=== PATIENT | female | born 1970 | race Caucasian/White ===

== ENCOUNTER 2017-01-02 07:49 | Day surgery (SDC) | payer BC, OTHER ==
[2016-12-31 16:08] VITALS: BMI 54.5
[2017-01-02 08:36] VITALS: RESP 16; TEMP 97.2
[2017-01-02] MEDS ORDERED: LIDOCAINE 1% 20 ML VIAL (10MG/ML) FOR IV START INTRADERMA ONE (08:36)
[2017-01-02] MEDS ORDERED: LACTATED RINGERS 1,000 ML IV ONE (08:37)
[2017-01-02] MEDS ORDERED: PROPOFOL 10 MG/ML 20 ML VIAL IV ONE (08:55)
--- NOTE | 2017-01-02 09:17 | P.PCN ---
Date of Procedure: 01/02/17 Preoperative Diagnosis: Postoperative Diagnosis: Procedure(s) Performed: BRIEF HISTORY: Patient is a 46-year-old pleasant white female, scheduled for an elective colonoscopy as a part of screening for colorectal neoplasia. She has a family history of colon cancer diagnosed in her father at age 55. PROCEDURE PERFORMED: Colonoscopy with snare polypectomy. PREOPERATIVE DIAGNOSIS: Screening for colon cancer and family history of colon cancer. IV sedation per Anesthesia. PROCEDURE: After informed consent was obtained, the patient, was brought into the endoscopy unit. IV sedation was administered by Anesthesia under continuous monitoring. Digital rectal examination was normal. Initially the Olympus CF- 160 flexible video colonoscope was then inserted in the rectum, gradually advanced into the cecum without any difficulty. Careful examination was performed as the scope was gradually being withdrawn. Ileocecal valve and the appendiceal orifice were visualized and appeared normal. Prep was excellent. Mucosa of the cecum appeared normal. In the ascending colon there was a 2 cm broad-based polyp removed by piecemeal snare polypectomy and complete polypectomy accomplished. The rest of the ascending colon, transverse colon, descending colon, appeared normal. In the descending colon there was a 1 cm polyp removed by snare polypectomy. The sigmoid colon, and rectum appeared normal. Retroflexion was performed in the rectum and no lesions were seen. The patient tolerated the procedure well. IMPRESSION: 2 cm broad-based ascending colon polyp status post polypectomy 1 cm descending colon polyp serous was snare polypectomy RECOMMENDATIONS: Findings of this examination were discussed with the patient as well as her family. She was advised to follow with the biopsy results. She can have a repeat colonoscopy in 3 years. Implants: Indications for Procedure: Operative Findings: Description of Procedure:
[2017-01-02 09:42] VITALS: BP 119/81; PULSE 68
== END 2017-01-02 10:11 | disposition home or self-care (01) ==
LOC: ORWHC2ENDO 07:49
PROVIDERS: ATTEND Internal Medicine Gastroenterology
DX: Z12.11 Encounter for screening for malignant neoplasm of colon (principal); D12.2 Benign neoplasm of ascending colon; D12.4 Benign neoplasm of descending colon; Z80.0 Family history of malignant neoplasm of digestive organs; Z79.1 Long term (current) use of non-steroidal anti-inflammatories (NSAID); Z79.899 Other long term (current) drug therapy; E66.01 Morbid (severe) obesity due to excess calories
CPT/HCPCS: 81025; 88305; 45385; J2704

== ENCOUNTER → 2018-03-11 | Outpatient (CLI) | payer BC ==
--- NOTE | 2018-03-11 14:30 | MM ---
Reason for exam: screening (asymptomatic). Baseline mammogram. History: Family history of breast cancer in paternal grandmother. Physical Findings: Nurse did not find any significant physical abnormalities on exam. MG Screening Mammo w CAD Bilateral CC and MLO view(s) were taken. XCCL view(s) were taken of the left breast. There are scattered fibroglandular densities. No significant findings. These results were verbally communicated with the patient and result sheet given to the patient on 03/11/18. ASSESSMENT: Benign, BI-RAD 2 RECOMMENDATION: Routine screening mammogram of both breasts in 1 year.
== END | disposition home or self-care (01) ==
LOC: RADMAMWWP 13:39
PROVIDERS: ATTEND Family Medicine
DX: Z12.31 Encounter for screening mammogram for malignant neoplasm of breast (principal)
CPT/HCPCS: 77067

== ENCOUNTER → 2019-11-24 | Outpatient (CLI) | payer BC | END | disposition home or self-care (01) | LOC: LABWHC1 07:14 | PROVIDERS: ATTEND Family Medicine | DX: R06.02 Shortness of breath (principal) | CPT/HCPCS: 87635 ==

== ENCOUNTER → 2020-01-11 | Outpatient (CLI) | payer BC | END | disposition home or self-care (01) | LOC: LABWHC1 07:27 | PROVIDERS: ATTEND Surgery Trauma Surgery | DX: Z11.59 Encounter for screening for other viral diseases (principal) | CPT/HCPCS: U0003; C9803 ==

== ENCOUNTER → 2020-08-16 | Outpatient (CLI) | payer BC ==
--- NOTE | 2020-08-16 19:48 | CONS ---
CONSULTATION DATE OF SERVICE: 08/16/2020 This 50-year-old lady has been evaluated in the sleep center for possible obstructive sleep apnea-hypopnea syndrome. HISTORY OF PRESENT ILLNESS/SLEEP-WAKE EVALUATION: Patient's usual sleep schedule on weekdays is from 8 p.m. to 3:30 a.m., on weekends from 9:30 p.m. to 9 a.m. No problems with falling asleep, although she has a TV set in the bedroom. She usually sleeps on the side position. She has loud snoring and she wakes up from sleep 3 times with nocturia. In the morning, the patient wakes up tired, has difficulties paying attention and has problems with memory, concentration, irritability, depression, anxiety, claustrophobia. [place] Sleepiness Scale is in extremely high range at 23. The patient is ready to take naps, but she does not have time to do that. She drinks 24 ounces of coffee during the day. No history of hypnagogic hallucinations, sleep paralysis or cataplexy. PAST MEDICAL HISTORY: Positive for asthma, episodes of pneumonia, depression, acid reflux, vertigo. PAST SURGICAL HISTORY: Polypectomy from larynx, . MEDICATIONS: 1. Citalopram 40 mg once a day. 2. Meclizine 25 mg as needed. 3. Phentermine 37.5 mg once a day. 4. Omeprazole 20 mg twice a day. 5. Montelukast 10 mg once a day. 6. Albuterol inhaler. SOCIAL HISTORY: Negative for smoking or using alcohol. FAMILY HISTORY: Positive for stroke, arthritis, liver problems, thyroid problems. REVIEW OF SYSTEMS: Multiple awakenings from sleep. Extremely significant excessive daytime sleepiness. PHYSICAL EXAMINATION: GENERAL: A pleasant lady without distress. VITAL SIGNS: BP 147/75, HR 82, RR 16, height 5 feet 7 inches, weight 384.4, body mass index 60.2, temperature 98.1. HEENT: PERRLA, EOMI. Evaluation of oropharynx showed tongue protrudes midline. Extremely low position of soft palate. Changes of voice after surgery. NECK: Supple. No JVD. Thyroid is not palpable. Wide neck; 19 inches in circumference. LUNGS: Clear to percussion and to auscultation. Good air exchange. No wheezing or rhonchi. HEART: S1, S2 regular. No murmurs, gallops or rubs. ABDOMEN: Obese. EXTREMITIES: No clubbing or cyanosis. SUPERVISOR MALTED MILK: Awake, alert, and oriented X3. Cranial nerves 2 to 7 intact. There is no fasciculation or atrophy. noted. No focal deficits observed. IMPRESSION: 1. Loud snoring, multiple awakenings from sleep with nocturia, low position of soft palate, wide neck at 19 inches, significant excessive daytime sleepiness; obstructive sleep apnea-hypopnea syndrome. 2. History of asthma. 3. History of episodes of pneumonia. 4. History of depression. 5. Acid reflux. 6. History of episodes of vertigo. 7. Status post polypectomy from larynx recently. 8. Status post . 9. Some increasing blood pressure in the office. PLAN: 1. We will start with a home sleep apnea test for evaluation of patient's breathing during sleep. 2. Following plan after reviewing results of sleep study. 3. Aggressive losing weight program. 4. Sleep hygiene with regular time in bed for at least 7-1/2 to 8 hours. 5. Preferable position during sleep is on the side. 6. Monitoring blood pressure. 7. Low-sodium diet. Thank you very much for referring this patient for consultation. Sincerely, Ronny Ayon MD, PhD, FAASM Diplomat of [employer] Aviation Electronic Warfare Operator of [facility] [place] GUI / JACOB: [id number] /
== END | disposition home or self-care (01) ==
LOC: SLEEP 15:35
PROVIDERS: ATTEND Internal Medicine
DX: G47.33 Obstructive sleep apnea (adult) (pediatric) (principal); K21.9 Gastro-esophageal reflux disease without esophagitis; R35.1 Nocturia; Z86.59 Personal history of other mental and behavioral disorders; Z87.09 Personal history of other diseases of the respiratory system; Z86.69 Personal history of other diseases of the nervous system and sense organs; Z98.890 Other specified postprocedural states; Z79.899 Other long term (current) drug therapy; Z79.51 Long term (current) use of inhaled steroids
CPT/HCPCS: 99211

== ENCOUNTER → 2020-11-09 | Outpatient (CLI) | payer BC ==
--- NOTE | 2020-11-09 16:33 | CT ---
EXAMINATION TYPE: CT brain wo/w con DATE OF EXAM: 11/09/2020 COMPARISON: None HISTORY: Vertigo. CT DLP: 2237.5 mGycm Automated exposure control for dose reduction was used. CONTRAST: Performed without and with IV Contrast, patient injected with 100ml mL of Isovue 300. Ventricles have normal size. There is no mass effect nor mid line shift. There is no sign of intracra nial hemorrhage. The calvarium is intact. Skull base is intact. There is normal aeration of the masto id sinuses. There is no pathologic enhancement. Sella turcica appears normal. There is normal enhancement of the venous sinuses. There is no evidence of posterior fossa abnormality. IMPRESSION: Negative CT scan of the brain.
== END | disposition home or self-care (01) ==
LOC: RADCTMAIN 14:43
PROVIDERS: ATTEND Family Medicine
DX: R42 Dizziness and giddiness (principal)
CPT/HCPCS: 70470; Q9967

== ENCOUNTER → 2021-01-08 | Outpatient (CLI) | payer BC ==
--- NOTE | 2021-01-10 11:39 | MM ---
Reason for exam: screening (asymptomatic). Last mammogram was performed 2 years and 10 months ago. History: Family history of breast cancer in paternal grandmother. Physical Findings: A clinical breast exam by your physician is recommended on an annual basis and results should be correlated with mammographic findings. MG Screening Mammo w CAD Bilateral CC and MLO view(s) were taken. Prior study comparison: March 11, 2018, bilateral MG screening mammo w CAD. There are scattered fibroglandular densities. There is no discrete abnormality. No significant changes when compared with prior studies. ASSESSMENT: Negative, BI-RAD 1 RECOMMENDATION: Routine screening mammogram of both breasts in 1 year.
--- NOTE | 2021-01-10 22:03 | BD ---
EXAMINATION TYPE: Axial Bone Density DATE OF EXAM: 01/08/2021 COMPARISON: NONE CLINICAL HISTORY: 50 YR OLD FEMALE.....ICD-10 CODE: POST MENOPAUSAL Height: 66.5 Weight: 388 FRAX RISK QUESTIONS: Family History (Parent hip fracture): YES Glucocorticoids (More than 3mos): YES (Ex: prednisone, prednisolone, methylprednisolone, dexamethasone, and hydrocortisone). RISK FACTORS HISTORY OF: Family History of Osteoporosis: YES, GRANDMOTHER, MOTHER, WITH HIP FX Postmenopausal woman: LMP NOV, 2020, DENIES CHANCE Hyperparathyroidism: NO Adrenal Insufficiency: NO MEDICATIONS: Prednisone or other steroids: INHALERS AND STEROIDS, FOR ASTHMA FOR MANY YRS Additional Medications: CELEXA, REFLUX MEDS, MULTIVITAMIN Additional History: ALL OVER BONE AND JOINT PAIN, REFLUX, ASTHMA, EXAM MEASUREMENTS: Bone mineral densitometry was performed using the [employer] System. Bone mineral density as measured about the Lumbar spine is: ----- L1-L4(G/cm2): 1.247 T Score Values are as follows: ----- L1: 1.7 ----- L2: 1.1 ----- L3: 0.3 ----- L4: -0.7 ----- L1-L4: 0.6 Bone mineral density FIRST BONE DENSITY STUDY......PT 50 YRS OLD, BASELINE Bone mineral density about the R hip (g/cm2): 1.094 Bone mineral density about the L hip (g/cm2): 1.108 T Score values are as follows: -----R Neck: 0.0 -----L Neck: -0.3 -----R Total: 0.7 -----L Total: 0.8 Bone mineral density FIRST DEXA SCAN.....BASELINE, PT IS 50 YRS OLD FRAX%s; THERE IS A 7.9% CHANCE FOR A MAJOR OSTEOPOROTIC FX AND A 0.1% FOR HIP......PROBABILITY FOR FX IN 10 YRS TIME IMPRESSION: Normal (Values between +1 and -1 indicate normal bone mass). Consider repeating this study in 5 year s or sooner if there is some new clinical indication. NOTE: T-SCORE=SD OF THE YOUNG ADULT MEAN.
== END | disposition home or self-care (01) ==
LOC: RADMAMWWP 08:30
PROVIDERS: ATTEND Family Medicine
DX: Z12.31 Encounter for screening mammogram for malignant neoplasm of breast (principal); Z78.0 Asymptomatic menopausal state
CPT/HCPCS: 77067; 77080

== ENCOUNTER → 2021-01-23 | Outpatient (CLI) | payer BC ==
--- NOTE | 2021-01-23 22:29 | SFUN ---
SLEEP CENTER FOLLOW UP NOTE DATE OF SERVICE: 01/23/2021 CLINICAL: 50-year-old lady has been followed in Sleep Center for treatment of obstructive sleep apnea-hypopnea syndrome. Recently the patient had a home sleep apnea test which showed extremely severe obstructive sleep apnea-hypopnea syndrome. I discussed results of sleep studies with patient in detail. She underwent CPAP titration when her respiration was normalized. Today is her first visit after she was started on treatment with CPAP and she likes her equipment now, although may have a little bit discomfort from fullface mask. She feels better while using her CPAP. [place] Sleepiness Scale today increased to 13. During consultation it was 23. Subsequently, there is significant improvement but still indicates some sleepiness. I checked the CPAP unit. Range of the pressure 5-15 with average pressure 10.2, usage 24/30 nights and 23/ nights for more than 4 hours with average usage 5.6 hours per night. Leak is 18 L/minute, which is borderline. Apnea-hypopnea index is only 1.8, which is totally normal. MEDICATIONS: Citalopram 40 mg once a day, meclizine 25 mg as needed, ( ) 37.5 mg once a day, omeprazole 20 mg twice a day, Montelukast 10 mg once a day, albuterol inhaler. PHYSICAL EXAM: Patient in no distress. Blood pressure 146/71, HR 76, RR 16, weight 291, temp 97.5, oxygen saturation on room air 95%. Oropharynx has low position of soft palate. Mallampati IV. Changes of voice. HEENT: PERRLA, EOMI, evaluation of oropharynx showed tongue protrudes midline. NECK: Supple, no JVD. Thyroid is not palpable. LUNGS: Clear to percussion and to auscultation. Good air exchange. No wheezing or rhonchi. HEART: S1, S2 regular. No murmurs, gallops, or rubs. ABDOMEN: Obese. Soft and nontender. Bowel sounds are present. No organomegaly appreciated. EXTREMITIES: No clubbing or cyanosis. TABLE OPERATOR: Awake, alert, and oriented X3. Cranial nerves 2 to 7 intact. There is no fasciculation or atrophy. noted. No focal deficits observed. IMPRESSION: 1. Extremely severe obstructive sleep apnea-hypopnea syndrome; apnea-hypopnea index 66.6 with oxygen desaturation to 62%. The patient demonstrated good compliance with treatment. Normal respiration on CPAP. 2. Obesity. 3. History of asthma. 4. History of depression. 5. History of episodes of pneumonia. 6. Acid reflux. 7. History of episodes of vertigo. 8. Status post polypectomy from larynx, changes of voice. 9. Status post . 10.Increasing blood pressure in the office. PLAN: 1. I discussed with the patient position of CPAP unit during the sleep, which should stay lower than her head. Position of the tube should be directly from her face to the CPAP unit. 2. The patient should make humidifier dry after awakenings in the morning. 3. Patient will continue to use PAP equipment every night for the whole night. 4. Sleep hygiene with regular time in bed for at least 7-1/2 to 8 hours. 5. Precautions related to driving. No driving if feeling sleepiness. 6. I will maintain all necessary prescription for PAP supplies including mask, tube, filters. 7. Watching weight. 8. Follow-up visit in 6 months or earlier if patient has any problems. I spent with this patient and documentation more than 30 minutes. Thank you very much for allowing me to participate in management of your patient. Sincerely, Ronny Ayon MD, PhD, FAASM Diplomat of [employer] Sleep Medicine Board of [place] [employer] Agricultural Appraiser of [facility] [place] GUI / JACOB: [id number] / MTDD
== END ==
LOC: SLEEP 15:53
PROVIDERS: ATTEND Internal Medicine
DX: G47.33 Obstructive sleep apnea (adult) (pediatric) (principal); G47.36 Sleep related hypoventilation in conditions classified elsewhere; E66.9 Obesity, unspecified; J45.909 Unspecified asthma, uncomplicated; F32.9 Major depressive disorder, single episode, unspecified; R49.9 Unspecified voice and resonance disorder; K21.9 Gastro-esophageal reflux disease without esophagitis; R03.0 Elevated blood-pressure reading, without diagnosis of hypertension; Z98.890 Other specified postprocedural states; Z99.89 Dependence on other enabling machines and devices; Z87.01 Personal history of pneumonia (recurrent); Z86.69 Personal history of other diseases of the nervous system and sense organs; Z87.891 Personal history of nicotine dependence

== ENCOUNTER 2021-04-15 09:25 | Day surgery (SDC) | payer BC ==
[2021-04-11 10:52] VITALS: BMI 59.5
[~2021-04-15 09:25] MED LIST: DEXAMETHASONE SOD PHOSPHATE 4 MG/ML 1 ML VIAL IV ONE; HYDROmorphone 0.5 MG/0.5 ML SYRINGE IVP PRN; LACTATED RINGERS 1,000 ML IV SCH; ONDANSETRON 4 MG/2 ML VIAL IVP ONE; Pre Op ABX Message 1 EACH MISC MISCELLANE ONE
[2021-04-15 09:55] VITALS: RESP 16
[2021-04-15] MEDS ORDERED: SCOPOLAMINE 1.5MG/72HR PATCH TRANSDERM ONE (10:03)
[2021-04-15] MEDS ORDERED: LIDOCAINE 1% (10MG/ML) FOR IV START INTRADERMA ONE (10:04)
[2021-04-15] MEDS ORDERED: LIDOCAINE 1% INJ 10MG/ML (20 ML MDV) ONE (11:06)
[2021-04-15] MEDS ORDERED: SUCCINYLCHOLINE CHLORIDE VIAL 200 MG/10 ML VIAL IV ONE (11:06)
[2021-04-15] MEDS ORDERED: PROPOFOL 10 MG/ML 20 ML VIAL IV ONE (11:06)
[2021-04-15] MEDS ORDERED: fentaNYL (PF) 50 MCG/ML 2 ML AMP ONE (11:06)
[2021-04-15] MEDS ORDERED: MIDAZOLAM 2 MG/2 ML VIAL ONE (11:06)
[2021-04-15] MEDS ORDERED: BUPIVACAINE (PF) 0.25% 30 ML VIAL SQ ONE ×2 (11:07→11:49)
[2021-04-15] MEDS ORDERED: SODIUM CHLORIDE 0.9% 100 ML with ceFAZolin 3,000 MG IV ONE ×2 (11:11)
--- NOTE | 2021-04-15 12:04 | P.OP ---
Date of Procedure: 04/15/21 Preoperative Diagnosis: Torn medial lateral meniscus right knee Postoperative Diagnosis: 1. Torn medial meniscus right knee 2. Torn lateral meniscus right knee 3. 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 Synovitis Procedure(s) Performed: 1. Arthroscopy with partial medial meniscectomy (20% of meniscus excised) 2. Partial lateral meniscectomy (10% meniscus excised) 3. Chondroplasty of the medial femoral condyle and the patellofemoral compartments. 4. Partial synovectomy of the medial femoral, lateral femoral, and patellofemoral compartments Anesthesia: MAHIN Surgeon: Emil Mondragon Estimated Blood Loss (ml): 10 Pathology: none sent Condition: stable Disposition: PACU Indications for Procedure: This is a 42-year-old female that presented to my office with pain in her right knee. MRI does show torn medial and lateral meniscus and after discussing the surgical and nonsurgical treatment options with her at length, she wished to proceed with arthroscopic debridement of right knee. Informed consent was obtained. Operative Findings: The operative findings are consistent with a torn medial and lateral meniscus, grade 3 chondral malacia the mediofemoral condyle and patellofemoral compartments, and synovitis Description of Procedure: Patient was seen and evaluated in the preoperative area, the operative site was marked with a skin marker. The patient was then brought to the operating room and given 3 g of Ancef intravenously. A general anesthetic was administered by the anesthesia department. Tourniquet was placed on the right upper thigh and the left lower extremity was then prepped and draped in usual sterile fashion. A universal timeout was then performed confirming the patient's name, surgical site, ALLERGIES, and consent. The limb was then exsanguinated and tourniquet insufflated to 350 mmHg. Standard inferior medial and inferior lateral portals were established in the knee. The trochar was inserted in the inferolateral portal. Examination began at the patellofemoral joint. There is noted to be grade 3 chondral malacia the patellofemoral compartment and a moderate amount of synovitis. Next the medial compartment was visualized. There was a tear of the posterior horn of the medial meniscus. There was grade 3 chondral malacia the mediofemoral compartment and synovitis. The notch area was then visualized and the ACL was intact. The Lateral compartment was then visualized and there was a tear of the lateral horn of the lateral meniscus. There was no evidence of chondromalacia, but a mild amount of synovitis. Next, using an arthroscopic shaver and a biter, partial medial meniscectomy was performed stable margins. Approximately 20% of the meniscus was excised. a partial lateral meniscectomy was also performed with approximately 10% of the lateral meniscus excised. A partial synovectomy is performed the medial femoral, lateral femoral, patellofemoral compartments. Chondroplasty was also performed of the medial femoral and patellofemoral compartments of the knee. Knee was then copiously irrigated, instruments removed, incisions were closed with 4-0 nylon. 30 mL of quarter percent plain Marcaine was injected sterilely into the surgical area. A sterile dressing was then applied, and the tourniquet was released. Patient was then transferred to recovery room in stable condition.condition.
[2021-04-15 12:16] VITALS: TEMP 96.9
[2021-04-15] MEDS ORDERED: LACTATED RINGERS 1,000 ML IV ONE (13:19)
[2021-04-15] MEDS ORDERED: KETOROLAC 15 MG/ML 1 ML VIAL ONE (13:24)
[2021-04-15] MEDS ORDERED: KETOROLAC 15 MG/ML 1 ML VIAL IVP ONE (13:28)
[2021-04-15 14:28] VITALS: BP 117/73; PULSE 64
== END 2021-04-15 15:02 | disposition home health service (06) ==
LOC: OR 09:25
PROVIDERS: ATTEND Orthopaedic Surgery
DX: S83.241A Other tear of medial meniscus, current injury, right knee, initial encounter (principal); S83.281A Other tear of lateral meniscus, current injury, right knee, initial encounter; M65.9 Synovitis and tenosynovitis, unspecified; G47.30 Sleep apnea, unspecified; F32.9 Major depressive disorder, single episode, unspecified; E66.01 Morbid (severe) obesity due to excess calories; Z79.899 Other long term (current) drug therapy
CPT/HCPCS: 29880; 81025; J2250; J0330; J1100; J2405; J0690; J2001; J3010; J1885; J2704; J1170

== ENCOUNTER 2021-09-09 10:35 | Emergency (ER) | payer BC ==
[2021-09-09 10:46] VITALS: TEMP 98.7
--- NOTE | 2021-09-09 12:01 | XR ---
EXAMINATION TYPE: XR KUB DATE OF EXAM: 09/09/2021 COMPARISON: NONE HISTORY: Pain TECHNIQUE: One view abdominal series FINDINGS: The osseous structures are intact. The bowel gas pattern is nonspecific. Lung bases are clear. Hear t size prominent. Arthropathy of the hips. No suspicious calcifications. IMPRESSION: 1. Nonspecific abdomen.
--- NOTE | 2021-09-09 12:36 | ED ---
Abdominal Pain HPI - General Chief Complaint: Abdominal Pain Stated Complaint: Abd pain Time Seen by Provider: 09/09/21 11:07 Source: patient, RN notes reviewed Mode of arrival: ambulatory Limitations: no limitations - History of Present Illness Initial Comments: 51-year-old female sent emergency Department with chief complaint of right flank pain. Patient states it started last from for hours. Patient states that nothing is making her pain feel better or worse. She does have a history of kidney stones. Patient states it is worse with movement at times. Denies any bowel, bladder incontinence or retention no saddle anesthesias denies any dysuri a hematuria patient did take some pain meds which helped her. Patient chest pain shortness breath - Related Data Home Medications Medication Instructions Recorded Confirmed Albuterol Sulfate [Proair Hfa] 1 - 2 puff INHALATION RT-QID PRN 12/31/16 09/09/21 Citalopram Hydrobromide 40 mg PO HS 12/31/16 09/09/21 [Citalopram HBr] Omeprazole Magnesium [PriLOSEC] 20 mg PO BID 09/09/21 09/09/21 Previous Rx's Medication Instructions Recorded Ketorolac [Toradol] 10 mg PO Q8HR #15 tab 09/09/21 Ondansetron Odt [Zofran Odt] 4 mg PO Q8HR PRN #10 tab 09/09/21 Sulfamethox-Tmp 800-160Mg [Bactrim 1 each PO Q12HR #14 tab 09/09/21 Ds] Tamsulosin [Flomax] 0.4 mg PO DAILY #7 cap 09/09/21 Allergies Allergy/AdvReac Type Severity Reaction Status Date / Time No Known Allergies Allergy Verified 09/09/21 12:05 Review of Systems ROS Statement: Those systems with pertinent positive or pertinent negative responses have been documented in the HPI. ROS Other: All systems not noted in ROS Statement are negative. Past Medical History Past Medical History: Asthma Additional Past Medical History / Comment(s): HAS DRY COUGH-STATES IT FEELS LIKE SOMETHING IS IN HER THROAT AND HAS BEEN BOTHERING HER SINCE JESSE. History of Any Multi-Drug Resistant Organisms: None Reported Past Surgical History: Section, Tubal Ligation Past Anesthesia/Blood Transfusion Reactions: No Reported Reaction, Motion Sickness Past Psychological History: No Psychological Hx Reported Smoking Status: Never smoker Past Alcohol Use History: Rare Past Drug Use History: None Reported - Past Family History Father Family Medical History: Cancer Additional Family Medical History / Comment(s): COLON CA General Exam Limitations: no limitations General appearance: alert, in no apparent distress Head exam: Present: atraumatic, normocephalic, normal inspection Eye exam: Present: normal appearance, PERRL, EOMI. Absent: scleral icterus, conjunctival injection, periorbital swelling ENT exam: Present: normal exam, normal oropharynx, mucous membranes moist Neck exam: Present: normal inspection, full ROM. Absent: tenderness, meningismus, lymphadenopathy Respiratory exam: Present: normal lung sounds bilaterally. Absent: respiratory distress, wheezes, rales, rhonchi, stridor Cardiovascular Exam: Present: regular rate, normal rhythm, normal heart sounds. Absent: systolic murmur, diastolic murmur, rubs, gallop, clicks Back exam: Present: CVA tenderness (R). Absent: CVA tenderness (L) Skin exam: Present: warm, dry, intact, normal color. Absent: rash Course Vital Signs 09/09/21 09/09/21 10:44 12:42 Temperature 98.7 F Pulse Rate 86 75 Respiratory 20 18 Rate Blood Pressure 145/78 142/77 O2 Sat by Pulse 98 97 Oximetry Medical Decision Making - Medical Decision Making 51-year-old presented for right flank pain patient does any hematuria noted on urinalysis patient does have a history kidney stones pains is consistent with kidney stone. Patient will be started on Toradol, Flomax, Zofran. Patient did have a small amount bacterial placed on antibiotics prophylactically patient will follow-up with urology return for any worsening change in symptoms. - Lab Data Result diagrams: 09/09/21 12:22 09/09/21 12:22 Lab Results 09/09/21 09/09/21 09/09/21 Range/Units 11:15 12:22 12:22 WBC 7.7 (3.8-10.6) k/uL RBC 3.96 (3.80-5.40) m/uL Hgb 12.6 (11.4-16.0) gm/dL Hct 37.8 (34.0-46.0) % MCV 95.7 (80.0-100.0) fL MCH 31.8 (25.0-35.0) pg MCHC 33.2 (31.0-37.0) g/dL RDW 14.4 (11.5-15.5) % Plt Count 351 (150-450) k/uL MPV 7.1 Neutrophils % 67 % Lymphocytes % 21 % Monocytes % 5 % Eosinophils % 4 % Basophils % 1 % Neutrophils # 5.2 (1.3-7.7) k/uL Lymphocytes # 1.7 (1.0-4.8) k/uL Monocytes # 0.4 (0-1.0) k/uL Eosinophils # 0.3 (0-0.7) k/uL Basophils # 0.1 (0-0.2) k/uL Sodium 137 (137-145) mmol/L Potassium 3.9 (3.5-5.1) mmol/L Chloride 101 (98-107) mmol/L Carbon Dioxide 31 H (22-30) mmol/L Anion Gap 5 mmol/L BUN 11 (7-17) mg/dL Creatinine 0.65 (0.52-1.04) mg/dL Est GFR (CKD-EPI)AfAm >90 (>60 ml/min/1.73 sqM) Est GFR (CKD-EPI)NonAf >90 (>60 ml/min/1.73 sqM) Glucose 99 (74-99) mg/dL Calcium 8.8 (8.4-10.2) mg/dL Total Bilirubin 0.4 (0.2-1.3) mg/dL AST 28 (14-36) U/L ALT 28 (4-34) U/L Alkaline Phosphatase 74 (38-126) U/L Total Protein 7.0 (6.3-8.2) g/dL Albumin 3.8 (3.5-5.0) g/dL Amylase 53 (30-110) U/L Lipase 49 (23-300) U/L Urine Color Dark Brown Urine Appearance Cloudy H (Clear) Urine pH 5.5 (5.0-8.0) Ur Specific Baker 1.027 (1.001-1.035) Urine Protein 1+ H (Negative) Urine Glucose (UA) Negative (Negative) Urine Ketones Trace H (Negative) Urine Blood Large H (Negative) Urine Nitrite Negative (Negative) Urine Bilirubin Negative (Negative) Urine Urobilinogen <2.0 (<2.0) mg/dL Ur Leukocyte Esterase Small H (Negative) Urine RBC >182 H (0-5) /hpf Urine WBC 36 H (0-5) /hpf Urine Bacteria Occasional H (None) /hpf Urine Mucus Few H (None) /hpf Disposition Clinical Impression: Right flank pain, Kidney stone Disposition: HOME SELF-CARE Condition: Stable Instructions (If sedation given, give patient instructions): Kidney Stones (ED) Additional Instructions: Please return to the Emergency Department if symptoms worsen or any other concerns. Prescriptions: Sulfamethox-Tmp 800-160Mg [Bactrim Ds] 1 each PO Q12HR #14 tab Tamsulosin [Flomax] 0.4 mg PO DAILY #7 cap Ketorolac [Toradol] 10 mg PO Q8HR #15 tab Ondansetron Odt [Zofran Odt] 4 mg PO Q8HR PRN #10 tab PRN Reason: Nausea Is patient prescribed a controlled substance at d/c from ED?: No Referrals: Rogelio Bautista DO [Primary Care Provider] - 1-2 days Time of Disposition: 14:19
[2021-09-09 12:43] VITALS: RESP 18
[2021-09-09 12:45] LABS: Basophils # (A) 0.1 k/uL (0-0.2); Basophils % (A) 1 %; Eosinophils # (A) 0.3 k/uL (0-0.7); Eosinophils % (A) 4 %; HCT 37.8 % (34.0-46.0); HGB 12.6 gm/dL (11.4-16.0); Lymphocytes # (A) 1.7 k/uL (1.0-4.8); Lymphocytes % (A) 21 %; MCH 31.8 pg (25.0-35.0); MCHC 33.2 g/dL (31.0-37.0); MCV 95.7 fL (80.0-100.0); Mean Platelet Volume 7.1; Monocytes # (A) 0.4 k/uL (0-1.0); Monocytes % (A) 5 %; Neutrophils # (A) 5.2 k/uL (1.3-7.7); Neutrophils % (A) 67 %; Platelet Count 351 k/uL (150-450); RBC 3.96 m/uL (3.80-5.40); RDW 14.4 % (11.5-15.5); WBC 7.7 k/uL (3.8-10.6)
[2021-09-09 13:04] LABS: ALT 28 U/L (4-34); AST 28 U/L (14-36); African American GFR (CKD) >90 (>60 ml/min/1.73 sqM); Albumin 3.8 g/dL (3.5-5.0); Alkaline Phosphatase 74 U/L (38-126); Amylase 53 U/L (30-110); Anion Gap 5 mmol/L; Blood Urea Nitrogen 11 mg/dL (7-17); Calcium 8.8 mg/dL (8.4-10.2); Carbon Dioxide 31 mmol/L (22-30); Chloride 101 mmol/L (98-107); Glucose 99 mg/dL (74-99); Lipase 49 U/L (23-300); Non-African American GFR(CKD) >90 (>60 ml/min/1.73 sqM); Potassium 3.9 mmol/L (3.5-5.1); Sodium 137 mmol/L (137-145); Total Bilirubin 0.4 mg/dL (0.2-1.3)
[2021-09-09 13:34] LABS: Appearance,Urine Cloudy (Clear); Bacteria,Urine Occasional /hpf; Bilirubin,Urine Negative (Negative); Blood,Urine Large (Negative); Color,Urine Dark Brown; Glucose,Urine (UA) Negative (Negative); Ketones,Urine Trace (Negative); Leukocyte Esterase,Urine Small (Negative); Mucus,Urine Few /hpf; Nitrite,Urine Negative (Negative); PH, Urine 5.5 (5.0-8.0); Protein,Urine 1+ (Negative); RBC,Urine >182 /hpf (0-5); Specific Gravity,Urine 1.027 (1.001-1.035); Urobilinogen,Urine <2.0 mg/dL (<2.0); WBC,Urine 36 /hpf (0-5)
[2021-09-09 14:19] VITALS: BP 124/74; PULSE 70
== END 2021-09-09 14:37 | disposition home or self-care (01) ==
LOC: EC 10:35
DX: N20.0 Calculus of kidney (principal); J45.909 Unspecified asthma, uncomplicated; Z98.51 Tubal ligation status
CPT/HCPCS: 36415; 74018; 80053; 81001; 82150; 83690; 85025; 87086; 99284

== ENCOUNTER → 2022-03-13 | Outpatient (CLI) | payer BC ==
[2022-03-13 18:35] LABS: Basophils # (A) 0.03 X 10*3/uL (0.00-0.10); Basophils % (A) 0.4 %; Eosinophils # (A) 0.18 X 10*3/uL (0.04-0.35); Eosinophils % (A) 2.2 %; HCT 37.7 % (37.2-46.3); HGB 12.2 g/dL (12.0-15.0); Immature Grans, Automated 0.2 %; Lymphocytes # (A) 1.53 X 10*3/uL (0.90-5.00); Lymphocytes % (A) 19.1 %; MCH 31.4 pg (27.0-32.0); MCHC 32.4 g/dL (32.0-37.0); MCV 97.2 fL (80.0-97.0); Mean Platelet Volume 9.7 fL (9.5-12.2); Monocytes # (A) 0.58 X 10*3/uL (0.20-1.00); Monocytes % (A) 7.2 %; NRBC Per 100 WBC 0 /100 WBCS (0.0-0.0); Neutrophils # (A) 5.69 X 10*3/uL (1.80-7.70); Neutrophils % (A) 70.9 %; Platelet Count 293 X 10*3/uL (140-440); RBC 3.88 X 10*6/uL (4.10-5.20); RDW 14.3 % (11.5-14.5); WBC 8.03 X 10*3/uL (4.50-10.00)
[2022-03-13 19:01] LABS: Rheumatoid Factor, Qnt <10 IU/mL (0-15)
[2022-03-13 20:02] LABS: Erythrocyte Sedimentation Rate 18 mm/Hr (0-20)
[2022-03-13 22:28] LABS: DNA Double-Stranded NEGATIVE (NEGATIVE)
== END | disposition home or self-care (01) ==
LOC: LABWHC1 11:52
PROVIDERS: ATTEND Family Medicine
DX: F41.8 Other specified anxiety disorders (principal); G89.29 Other chronic pain; M25.561 Pain in right knee; M79.671 Pain in right foot; M25.562 Pain in left knee; M79.672 Pain in left foot
CPT/HCPCS: 36415; 85025; 85652; 86140; 86225; 86235; 86431

== ENCOUNTER 2022-08-04 07:21 | Day surgery (SDC) | payer BC ==
[2022-07-16 12:54] VITALS: BMI 62.6
--- NOTE | 2022-08-04 07:16 | P.GSHP ---
History of Present Illness H&P Date: 08/04/22 CHIEF COMPLAINT: GERD and colon screen HISTORY OF PRESENT ILLNESS: The patient is a 52-year-old female who presents with gastroesophageal reflux disease and need for colon screen. Upper and lower endoscopy were offered for further evaluation and management. PAST MEDICAL HISTORY: Please see list. PAST SURGICAL HISTORY: Please see list. MEDICATIONS: Please see list. ALLERGIES: Please see list. SOCIAL HISTORY: No illicit drug use FAMILY HISTORY: No reports of Crohn disease or ulcerative colitis. REVIEW OF ORGAN SYSTEMS: CONSTITUTIONAL: No reports of fevers or chills. GI: Denies any blood in stools or constipation. PHYSICAL EXAM: VITAL SIGNS: Stable GENERAL: Well-developed pleasant in no acute distress. HEENT: No scleral icterus. Extraocular movements grossly intact. Moist buccal mucosa. NECK: Supple without lymphadenopathy. CHEST: Unlabored respirations. Equal bilateral excursions. CARDIOVASCULAR: Regular rate and rhythm. Distal 2+ pulses. ABDOMEN: Soft, nondistended. MUSCULOSKELETAL: No clubbing, cyanosis, or edema. ASSESSMENT: 1. Gastroesophageal reflux disease 2. Colon screen. PLAN: 1. 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, VOICE IS HOARSE History of Any Multi-Drug Resistant Organisms: None Reported Past Surgical History: Section, Tubal Ligation Additional Past Surgical History / Comment(s): 3 surgeries to remove papillomas off throat, COLONOSCOPY Past Anesthesia/Blood Transfusion Reactions: Motion Sickness, Postoperative Nausea & Vomiting (PONV) Additional Past Anesthesia/Blood Transfusion Reaction / Comment(s): Hard to wake up out of anesthesia Smoking Status: Former smoker - Past Family History Father Family Medical History: Cancer Additional Family Medical History / Comment(s): COLON CA Medications and Allergies Home Medications Medication Instructions Recorded Confirmed Type Albuterol Sulfate [Proair Hfa] 1 - 2 puff INHALATION RT-QID PRN 12/31/16 07/31/22 History Citalopram Hydrobromide 40 mg PO HS 12/31/16 07/31/22 History [Citalopram HBr] Omeprazole Magnesium [PriLOSEC] 20 mg PO BID 09/09/21 07/31/22 History ALPRAZolam [Xanax] 0.5 mg PO BID PRN 06/11/22 07/31/22 History Furosemide [Lasix] 20 mg PO DAILY PRN 06/11/22 07/31/22 History Allergies Allergy/AdvReac Type Severity Reaction Status Date / Time No Known Allergies Allergy Verified 07/31/22 10:12
[~2022-08-04 07:21] MED LIST changes: -DEXAMETHASONE SOD PHOSPHATE 4 MG/ML 1 ML VIAL IV ONE; -HYDROmorphone 0.5 MG/0.5 ML SYRINGE IVP PRN; +LIDOCAINE 1% (10MG/ML) FOR IV START INTRADERMA PRN; -ONDANSETRON 4 MG/2 ML VIAL IVP ONE; -Pre Op ABX Message 1 EACH MISC MISCELLANE ONE
[2022-08-04] MEDS ORDERED: LACTATED RINGERS 1,000 ML IV ONE (08:00)
[2022-08-04 08:10] VITALS: TEMP 97
[2022-08-04] MEDS ORDERED: fentaNYL (PF) 50 MCG/ML 2 ML AMP ONE (08:14)
[2022-08-04] MEDS ORDERED: LIDOCAINE 2% INJ 20 MG/ML (2 ML VIAL) ONE (08:14)
[2022-08-04] MEDS ORDERED: MIDAZOLAM 2 MG/2 ML VIAL ONE (08:14)
[2022-08-04] MEDS ORDERED: PROPOFOL 10 MG/ML 20 ML VIAL IV ONE (08:14)
[2022-08-04] MEDS ORDERED: KETAMINE 10 MG/ML 20 ML VIAL ONE (08:14)
[2022-08-04 08:54] VITALS: RESP 16
[2022-08-04 09:17] VITALS: BP 111/64; PULSE 71
--- NOTE | 2022-08-05 00:52 | P.PCN ---
Date of Procedure: 08/04/22 Description of Procedure: PREOPERATIVE DIAGNOSIS: Gastroesophageal reflux disease. Morbid obesity. Vocal cord polyps with hoarse voice POSTOPERATIVE DIAGNOSIS: Gastroesophageal reflux disease. Morbid obesity. Gastritis. OPERATION: Esophagogastroduodenoscopy with biopsies along antrum and duodenum SURGEON: Mary Long MD ANESTHESIA: MAC. INDICATIONS: The patient is a 52-year-old female who presents with reflux disease. Benefits and risks of the procedure were described. Informed consent was obtained. DESCRIPTION: The patient was brought into the endoscopy suite and laid in the left lateral decubitus position. An Olympus gastroscope was passed along the posterior oropharynx down to the distal esophagus where the squamocolumnar junction was encountered at 45 cm from the incisors. The stomach was entered and no bile reflux was found. Additional findings are listed below. Biopsies with cold forceps were obtained of the antrum. The first through third portion of the duodenum was examined. Retroflexion of the scope confirmed Hill grade 1 lower esophageal valve. The squamocolumnar junction demonstrated LA grade A erosive esophagitis. The stomach was desufflated. The patient tolerated the procedure well. FINDINGS: Squamocolumnar junction 45 cm from the incisors. Diaphragmatic hiatus at 45 cm. Hill grade 1 lower esophageal valve. LA grade A erosive esophagitis. Biopsies obtained of the duodenum Chronic gastritis with biopsies obtained RECOMMENDATIONS: Upper endoscopy as needed.
--- NOTE | 2022-08-05 00:58 | P.PCN ---
Date of Procedure: 08/04/22 Description of Procedure: PREOPERATIVE DIAGNOSIS: Family history colon cancer Colonoscopy screening POSTOPERATIVE DIAGNOSIS: Tubular adenoma sigmoid colon Tubular adenoma transverse colon OPERATION: Colonoscopy to the ileocecal valve and appendiceal orifice, cecum Colonoscopy with hot snare polypectomy Colonoscopy with cold forceps biopsy SURGEON: Mary Long MD. ANESTHESIA: MAC. INDICATIONS: The patient is an 52-year-old female who presents family history of colon cancer and colon screen. Benefits and risks were described and informed consent was obtained. DESCRIPTION OF PROCEDURE: The patient had undergone Sutab prep. The patient had been brought into the operating room and laid in the left lateral decubitus position. After adequate intravenous sedation, the rectum was examined with 2% lidocaine jelly. No external hemorrhoids were encountered. The rectal tone was within normal limits. No lesions were palpated in the rectal vault. An Olympus colonoscope was advanced until the cecum, ileocecal valve and appendiceal orifice were clearly viewed. The prep was fair to good. No sigmoid diverticulosis was encountered. Colonic polyps were found and removed. No evidence of focal colitis was found. Retroflexion of the scope demonstrated grade 2 internal hemorrhoids without acti ve bleeding or inflammation. The colon was desufflated. The patient had tolerated the procedure well. Withdrawal time was over 6 minutes. FINDINGS: Aronchick preparation quality scale 2+ (1-5) Internal hemorrhoids, grade 3 with recent inflammation and bleeding External hemorrhoids, grade 4. No arteriovenous malformations. No sigmoid diverticulosis Removal of 2 polyps: - Snare polypectomy 20 cm from the anal verge, 5 mm adenoma, sigmoid - Snare polypectomy 15 cm from the anal verge, 6 mm adenoma, sigmoid - Cold forceps biopsy at transverse colon, 4 mm adenoma No focal colitis. RECOMMENDATIONS: Repeat scope 3 years, 2025 due to family history colon cancer in father and personal history colon polyps Plan - Discharge Summary Discharge Rx Participant: No New Discharge Prescriptions: Continue Albuterol Sulfate [Proair Hfa] 1 - 2 puff INHALATION RT-QID PRN PRN Reason: Bronchospasm Citalopram Hydrobromide [Citalopram HBr] 40 mg PO HS Furosemide [Lasix] 20 mg PO DAILY PRN PRN Reason: swelling Omeprazole Magnesium [PriLOSEC] 20 mg PO BID ALPRAZolam [Xanax] 0.5 mg PO BID PRN PRN Reason: Anxiety Discharge Medication List Albuterol Sulfate [Proair Hfa] 1 - 2 puff INHALATION RT-QID PRN 12/31/16 [History] Citalopram Hydrobromide [Citalopram HBr] 40 mg PO HS 12/31/16 [History] Omeprazole Magnesium [PriLOSEC] 20 mg PO BID 09/09/21 [History] ALPRAZolam [Xanax] 0.5 mg PO BID PRN 06/11/22 [History] Furosemide [Lasix] 20 mg PO DAILY PRN 06/11/22 [History] [facility] [place] [facility] Patient Instructions/Handouts: *Surgery [facility] - (Anesthesia) Endoscopy Discharge Instructions, Colorectal Polyps (GEN), Colonoscopy (DC), Upper Endoscopy (DC) Activity/Diet/Wound Care/Special Instructions: Repeat colonoscopy 3 years, 2025 Discharge Disposition: HOME SELF-CARE
== END 2022-08-04 10:07 | disposition home or self-care (01) ==
LOC: ORWHC2ENDO 07:21
PROVIDERS: ATTEND Surgery Plastic and Reconstructive Surgery
DX: Z12.11 Encounter for screening for malignant neoplasm of colon (principal); D12.3 Benign neoplasm of transverse colon; Z80.0 Family history of malignant neoplasm of digestive organs; K64.1 Second degree hemorrhoids; K64.4 Residual hemorrhoidal skin tags; J38.1 Polyp of vocal cord and larynx; K29.50 Unspecified chronic gastritis without bleeding; K21.00 Gastro-esophageal reflux disease with esophagitis, without bleeding; K44.9 Diaphragmatic hernia without obstruction or gangrene; K31.89 Other diseases of stomach and duodenum; E66.01 Morbid (severe) obesity due to excess calories; J45.909 Unspecified asthma, uncomplicated; Z87.891 Personal history of nicotine dependence; M79.7 Fibromyalgia; M19.90 Unspecified osteoarthritis, unspecified site; G47.30 Sleep apnea, unspecified; Z98.51 Tubal ligation status; Z98.890 Other specified postprocedural states; Z79.51 Long term (current) use of inhaled steroids; Z79.899 Other long term (current) drug therapy; Z79.1 Long term (current) use of non-steroidal anti-inflammatories (NSAID)
CPT/HCPCS: 45385; 45380; 43239; 81025; 88305; J2250; J3010; J2704; J2001

== ENCOUNTER → 2022-11-26 | Outpatient (CLI) | payer BC ==
[2022-11-26 16:05] VITALS: PULSE 65; RESP 12; TEMP 98.4; BMI 62.8
[2022-11-26 16:07] VITALS: BP 125/81
--- NOTE | 2022-11-26 16:53 | P.BASOAP ---
Subjective Progress Note Date: 11/26/22 Patient had psych assessment with need for additional assessment. [facility] 10 [facility]. Upper scope reviewed. Lower scope done. She is pending completion of her psych assessment. She is looking into the sleeve gastrectomy. Recommend food journal. Recovery 4 weeks. Needs labs and EKG and urine Objective - Vital Signs Vital signs: Vital Signs Temp 98.4 F 11/26/22 16:01 Pulse 65 11/26/22 16:01 Resp 12 11/26/22 16:01 BP 125/81 11/26/22 16:01 Pulse Ox FiO2 Intake & Output 11/25/22 11/26/22 11/26/22 18:59 06:59 18:59 Weight 182.117 kg Assessment/Plan Plan: Date: 11/26/22 Initial Weight: Initial BMI: Current Weight: 182.117 kg Current BMI: 62.8 Type of Surgery: Total Volume in Band: Previous Volume: Volume Removed: Volume Added: Band Size:
== END ==
LOC: BARWHC3 15:01
PROVIDERS: ATTEND Surgery Plastic and Reconstructive Surgery
DX: E66.01 Morbid (severe) obesity due to excess calories (principal); Z68.44 Body mass index [BMI] 60.0-69.9, adult; Z87.891 Personal history of nicotine dependence
CPT/HCPCS: 99211

== ENCOUNTER → 2022-12-08 | Outpatient (CLI) | payer BC ==
[2022-12-08 11:03] VITALS: BMI 62.5
== END ==
LOC: BARWHC3 08:43
PROVIDERS: ATTEND Surgery Plastic and Reconstructive Surgery
DX: E66.01 Morbid (severe) obesity due to excess calories (principal); Z71.3 Dietary counseling and surveillance; Z68.44 Body mass index [BMI] 60.0-69.9, adult; Z87.891 Personal history of nicotine dependence
CPT/HCPCS: 97804

== ENCOUNTER → 2023-01-05 | Outpatient (CLI) | payer BC ==
[2023-01-05 15:28] LABS: Partial Thromboplastin Time 23.8 sec (22.0-30.0); Prothrombin Time 10.4 sec (9.0-12.0)
[2023-01-05 22:57] LABS: HCT 39.4 % (37.2-46.3); HGB 12.4 d/dL (12.0-15.0); MCH 32.2 pg (27.0-32.0); MCHC 31.5 d/dL (32.0-37.0); MCV 102.3 FL (80.0-97.0); Mean Platelet Volume 10.1 FL (9.5-12.2); NRBC Per 100 WBC 0 X 10*3/uL (0.00-0.01); Platelet Count 315 X 10*3/uL (140-440); RBC 3.85 X 10*6/uL (4.10-5.20); RDW 14.4 % (11.5-14.5); WBC 7.51 X 10*3/uL (4.50-10.00)
[2023-01-06 02:54] LABS: Prealbumin 16.9 mg/dL (18.0-42.0)
[2023-01-06 03:08] LABS: % Iron Saturation 11.75 (12.00-45.00); ALT 37 U/L (8-44); AST 26 U/L (13-35); Albumin 4.2 d/dL (3.8-4.9); Albumin/Globulin Ratio 1.68 Ratio (1.60-3.17); Alkaline Phosphatase 95 U/L (41-126); Blood Urea Nitrogen 17.5 mg/dL (9.0-27.0); Calcium 9.2 mg/dL (8.7-10.3); Carbon Dioxide 27.7 mmol/L (21.6-31.8); Chloride 101 mmol/L (96-109); Chol/HDL Ratio 2.67 Ratio; Ferritin 40.3 ng/mL (10.0-291.0); Globulin 2.5 d/dL (1.6-3.3); Glucose 88 mg/dL (70-110); Iron 47 UG/DL (50-170); LDL Cholesterol,Calculated 96.5 mg/dL (0.0-131.0); Magnesium 1.9 mg/dL (1.5-2.4); Potassium 4.2 mmol/L (3.5-5.5); Sodium 140 mmol/L (135-145); Total Bilirubin <0.2 mg/dL (0.3-1.2); Total Iron Binding Capacity 400 UG/DL (228-460); Total Protein 6.7 d/dL (6.2-8.2); VLDL Calculation 16.18 mg/dL (5.00-40.00)
[2023-01-07 10:38] LABS: Zinc, Serum 56 ug/dL (60-130)
[2023-01-08 05:38] LABS: Anabasine Urine <2.0 ng/mL (<2.0)
== END | disposition home or self-care (01) ==
LOC: LABWHC1 14:18
PROVIDERS: ATTEND Surgery Plastic and Reconstructive Surgery
DX: E66.01 Morbid (severe) obesity due to excess calories (principal); E89.1 Postprocedural hypoinsulinemia; D50.8 Other iron deficiency anemias; E44.0 Moderate protein-calorie malnutrition; E55.9 Vitamin D deficiency, unspecified; K74.1 Hepatic sclerosis; N19 Unspecified kidney failure; K91.2 Postsurgical malabsorption, not elsewhere classified; E44.1 Mild protein-calorie malnutrition; E45 Retarded development following protein-calorie malnutrition; E46 Unspecified protein-calorie malnutrition; T56.894A Toxic effect of other metals, undetermined, initial encounter; K50.90 Crohn's disease, unspecified, without complications
CPT/HCPCS: 36415; 80053; 80061; 80323; 82306; 82525; 82607; 82728; 82746; 83036; 83540; 83550; 83735; 83970; 84100; 84134; 84255; 84425; 84443; 84590; 84630; 85027; 85610; 85730; 93005

== ENCOUNTER → 2023-12-08 | Outpatient (CLI) | payer BC ==
--- NOTE | 2023-12-09 11:21 | MM ---
Reason for Exam: Screening (asymptomatic). Last mammogram was performed 2 year(s) and 11 month(s) ago. Patient History: Menarche at age 14. First Full-Term at age 22. Paternal grandmother had breast cancer. Risk Values: Magalie 5 year model risk: 0.9%. NCI Lifetime model risk: 7.9%. Prior Study Comparison: 03/11/2018 Bilateral Screening Mammogram, [facility]. 01/08/2021 Bilateral Screening Mammogram, [facility]. Tissue Density: There are scattered areas of fibroglandular density. Findings: Analyzed By CAD. Right breast: There is no suspicious group of microcalcifications or new suspicious mass. Left breast: There is no suspicious group of microcalcifications or new suspicious mass. Overall Assessment: Negative, BI-RAD 1 Management: Screening Mammogram of both breasts in [address] [facility] will attempt to contact patient to return for supplemental views and ultrasound if indicated. Patient should continue monthly self-breast exams. A clinical breast exam by your physician is recommended on an annual basis. This exam should not preclude additional follow-up of suspicious palpable abnormalities. Note on Magalie scores and lifetime risk: 1. A Magalie score greater than 3% is considered moderate risk. If this is the case, consider specialist referral to assess eligibility for a risk reducing agent. 2. If overall lifetime risk for the development of breast cancer is 20% or higher, the patient may qualify for future screening with alternating mammogram and breast MRI. Electronically signed and approved by: Brendan Mckenna DO
== END | disposition home or self-care (01) ==
LOC: RADMAMWWP 08:01
PROVIDERS: ATTEND Family Medicine
DX: Z12.31 Encounter for screening mammogram for malignant neoplasm of breast (principal); Z80.3 Family history of malignant neoplasm of breast
CPT/HCPCS: 77067